=== PATIENT | female | born 1960 | race African-American/Black ===

== ENCOUNTER 2021-05-13 12:17 | Emergency (ER) | payer OTHER, MEDICAID ==
[~2021-05-13] VITALS: Ht 180.3 cm; Wt 117.9 kg
[2021-05-13] MEDS ORDERED: HYDROXYZINE HCL25 M2 PO ×2 (12:23→15:07)
[2021-05-13] MEDS ORDERED: LOSARTAN-HCTZ1 EAC3 PO (12:23)
[2021-05-13] MEDS ORDERED: LIPITOR 20 MG T20 M1 PO (12:24)
[2021-05-13] MEDS ORDERED: GABAPENTIN800 M1 PO (12:24)
[2021-05-13] MEDS ORDERED: NEURONTIN800 MG PO (12:24)
[2021-05-13] MEDS ORDERED: OXYCONTIN10 M1 PO (12:25)
[2021-05-13 15:14] VITALS: BP 134/72
== END 2021-05-13 15:15 | disposition home or self-care (01) ==
LOC: M.ERS 12:17
DX: F41.9 Anxiety disorder, unspecified (principal); Z88.5 Allergy status to narcotic agent; Z91.013 Allergy to seafood